=== PATIENT | female | born 1970 | race Caucasian/White ===

== ENCOUNTER 2024-12-06 14:16 | Outpatient (AMB) | payer OTHER, SELFPAY ==
--- NOTE | 2024-12-06 14:43 | AM.OFFWIN_ITS ---
Intake Vital Signs 12/06/24 14:46 Height 5 ft 3 in Weight 218 lb 4 oz BMI 38.7 BP 136/84 Blood Pressure Location Lt brachial Position Sitting Pulse 109 H Pulse Source Pulse Oximeter Temp 98.5 F Temp Source Oral Pulse Oximetry (%) 96 Oxygen Delivery Method Room Air Intake Visit Reasons: EP-vomiting, diarrhea Intake Note: Pt is on weightloss medication ate something started vomitting last night as well as diarrhea with blood. Patient Tobacco Use Status: Never used Tobacco [employer] Required: No Allergies Sulfa (Sulfonamide Antibiotics) [SULFA (SULFONAMIDE ANTIBIOTICS)] Allergy (Unknown, Verified 12/06/24 14:48) HIVES HPI HPI Comments History of Present Illness Details 54 y/o Female patient who presents to [facility] with c/o Abdominal cramping associated with Nausea, vomiting and diarrhea since Last night. Pt also has noticed Blood in the Stools and when wiping. Pt i currently on weight loss medication (Zepbound 2.5 mg ) started 2 weeks. This is being prescribed Online pharmacy. Pt reports that she had a Chicken Wing last night, that did not taste good - believes maybe she might have Food Poisoning. Denies fevers or body chills. [facility] Medical History (Updated 12/06/24 @ 15:15 by Lulu Álvarez NP) Rectal bleeding Nausea vomiting and diarrhea Social History Patient Tobacco Use Status: Never used Tobacco Review of Systems Const All systems reviewed & are unremarkable except as noted in HPI and below Physical Exam Vital Signs: Last Vital Signs Temp 98.5 F 12/06/24 14:46 Pulse 109 H 12/06/24 14:46 BP 136/84 12/06/24 14:46 Pulse Ox 96 12/06/24 14:46 Oxygen Delivery Method Room Air 12/06/24 14:46 BMI result Body Mass Index 38.7 Const General: no acute distress Nutritional Appearance: obese Orientation/consciousness: patient oriented x3 GI Inspection: Yes obesity Palpation (GI): Soft to palpation, not firm, Tenderness to palpation present (GI) (Generalized tenderness), no guarding, not rigid and No hepatosplenomegaly present Auscultation: Hyperactive bowel sounds present Neuro General: patient oriented x3, gait normal and moves all extremities Psych Speech and movement: Normal speech and movement present Assessment & Plan Assessment & Plan (1) Nausea vomiting and diarrhea: Code(s): R11.2 - Nausea with vomiting, unspecified; R19.7 - Diarrhea, unspecified Plan: Avoid spicy oily foods. Increase fluids intake Advance diet slowly. Ordered Reglan Possible Zepbound caused symptoms. (2) Rectal bleeding: Code(s): K62.5 - Hemorrhage of anus and rectum Plan: Possibly Hemorrhoids - Ordered Hydrocortisone Cream Medications: New metoclopramide HCl (Reglan) 10 mg PO Q6H PRN 30 tabs 0RF nausea and vomiting 10 days R11.2 - Nausea with vomiting, unspecified, R19.7 - Diarrhea, unspecified hydrocortisone 2.5% 1 appl topical BID PRN 30 grams 0RF skin irritation K62.5 - Hemorrhage of anus and rectum Coding Level of Care Code Est Pt Level 4 (02560) Diagnoses Nausea vomiting and diarrhea R11.2; R19.7 Rectal bleeding K62.5 Time Spent (min) 20
[2024-12-06 14:46] VITALS: BP 136/84; PULSE 109; TEMP 36.9; O2SAT 96; BMI 38.7
== END 2024-12-06 15:41 | disposition home or self-care (01) ==
PROVIDERS: PCP Internal Medicine; Visit Provider Nurse Practitioner Family
DX: R11.2 Nausea with vomiting, unspecified (principal); R19.7 Diarrhea, unspecified; K62.5 Hemorrhage of anus and rectum

== ENCOUNTER → 2024-12-06 14:16 | Outpatient (BNVA) | payer OTHER, SELFPAY | PROVIDERS: PCP Internal Medicine; Visit Provider Nurse Practitioner Family ==